=== PATIENT | male | born 1975 | race Caucasian/White ===

== ENCOUNTER 2016-10-20 09:56 | Emergency (ER) | payer OTHER ==
[2016-10-20 10:17] VITALS: RESP 15; TEMP 98.5
[2016-10-20 10:37] LABS: BLOOD UREA NITROGEN 14 mg/dL (7-22); BUN/CREATININE RATIO 11.66 (6-20); CALCIUM 9.5 mg/dL (8.7-10.7); CHLORIDE 104 meq/L (98-112); CREATININE 1.2 mg/dL (0.70-1.50); EST GLOMERULAR FILTRATION > 60 (>60 ml/min/1.73m(2)); GLUCOSE 119 mg/dL (78-110); SODIUM 140 meq/L (135-145)
--- NOTE | 2016-10-20 10:52 | DI ---
History: Left ankle pain. Two-view. Findings: Mild medial soft tissue thickening. No evidence of fracture or dislocation. Talar dome norm al. Subtalar joint normal. Tarsal arch normal. Impression: Mild medial soft tissue swelling, possible sprain. No bony abnormalities identified
--- NOTE | 2016-10-21 01:47 | PDOC ---
Lower Extremity Problem HPI - General Chief Complaint: Lower Extremity Problem/Injury Stated Complaint: left swollen ankle Date Seen by Provider: 10/20/16 Time Seen by Provider: 10:15 Source: POSITIVE: Patient Exam Limitations: POSITIVE: No limitations Nurse's Notes Reviewed & Considered: Yes - History of Present Illness Initial Comments: The patient is a 40-year-old male. He states that for the last 2 days he has had some swelling,redness and prominent tenderness over the area of the lateral malleolus and lateral aspect of the left ankle. No history of trauma. No fevers or chills. Area is quite tender on palpation. Is on no medications and has no known medical problems. Body Location Affected: REPORTS: Lower Extremity (L) Timing: REPORTS: Gradual, Getting Worse Duration: >24 hours (2 days) Severity: Moderate Recent Injury: REPORTS: No Context of Injury: DENIES: Fall, Twist, Direct Blow, Incision, Burn, Crush, Stab , Prolonged Pressure on Ext, Other Location at Time of Onset: REPORTS: Home Quality: REPORTS: "Pain", Tenderness Modifying Factors: REPORTS: Walking, Other (Direct palpation) Associated Symptoms: REPORTS: Chest Pain Similar Symptoms Previously: No Recent Care Received: REPORTS: Denies Any Prior Injuries Related to Current Complaint?: No - Patient Home Medications Home Medications: Home Medications Indomethacin 25 mg PO Q8H #45 capsule 10/20/16 - Patient Allergies Allergies/Adverse Reactions: Allergies Allergy/AdvReac Type Severity Reaction Status Date / Time No Known Allergies Allergy Verified 10/20/16 10:02 Past Medical History - heen HEENT History: Denies History Cardiovascular History: Denies History Respiratory History: Denies History Gastrointestinal History: Denies History Genitourinary History: Denies History Endocrine History: Denies History Musculoskeletal History: Denies History Prosthesis or Implant: No Neurological History: Denies History Blood Disorders: Denies History Psychiatric History: Denies History History of Sexually Transmitted Diseases: No Male Reproductive History: Denies History Cancer History: Denies History In Past Year Been Physically Harmed or Verbally Threatened: No (PER PATIENT) History of MDRO: No History of Other Communicable Diseases: No Tobacco Use: Current Every Day Smoker Alcohol Use: Other How much alcohol do you normally drink a day?: 4 BEERS DAILY Substance Use Type: None Previous Surgical History: No Significant Family History: No pertinent family hx Past Medical History Reviewed: Reviewed - No Changes ROS - Limitations ROS Limitations: No Limitations Constitution: REPORTS: Denies Symptoms Cardiovascular: REPORTS: Denies Cardiac Symptoms Respiratory: REPORTS: Denies Resp Symptoms Neurological: REPORTS: Denies Neuro Symptoms Gastrointestinal: REPORTS: Denies GI Symptoms Endocrine: REPORTS: Denies Symptoms Musculoskeletal: REPORTS: Other (Pain swelling and redness lateral aspect of left ankle) Genitourinary: REPORTS: Denies Symptoms Eyes: REPORTS: Denies Symptoms ENT: REPORTS: Denies Symptoms Skin: REPORTS: Other (Swelling, redness, warmth and tenderness over lateral aspect left ankle) Lympathic: REPORTS: Denies Lympathic Symptoms Immunologic: POSITIVE: Denies Symptoms Psychiatric: POSITIVE: Denies Psych Symptoms Lower Ext Problem Exam - General Appearance General Appearance: POSITIVE: Alert, Cooperative, No Acute Distress, No Evidence of Trauma - Extremities Lower Extremity: POSITIVE: Ankle, Tenderness, Swelling, Other (See diagram) Joint Exam: POSITIVE: Normal ROM, Ligamentous Instability, Antalgic Gait, Painful (On palpation around the lateral malleolus). 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 Nml, Pharynx Inspect. Nml, PERRL, EOMI - Respiratory / CVS Respiratory / CVS: POSITIVE: No Respiratory Distress, Breath Sounds Normal, Regular Rate/Rhythm, Heart Sounds Normal Peripheral Pulses: Radial (R): 2+, Radial (L): 2+, Dorsalis-pedis (R): 2+, Dorsalis-pedis (L): 2+ - Abdomen Abdomen: Soft: (All Quadrants), Normal Bowel Sounds: (All Quadrants), Denies Tenderness: (All Quadrants), No Splenomegaly: (All Quadrants), No Hepatomegaly: (All Quadrants), No Guarding: (All Quadrants), No Rebound: (All Quadrants), No Palpable Pulse: (All Quadrants), No Palpabale Mass: (All Quadrants), No Distention: (All Quadrants), No Rigidity: (All Quadrants) Images - Lower Extremities Lower Extremities: 1 - Rubor, calor, dolor. Pain on palpation Lower Ext Problem Progress - Results Reviewed by me Xrays/CTs/US Reviewed by me: Yes Discussed with Radiologist: No Radiology Findings: X-ray left ankle normal by my interpretation; radiologist interpretation pending. Lab Results Reviewed: Yes Lab Results:: Laboratory Results 10/20/16 10/20/16 Range/Units 10:12 10:18 Sodium 140 (135-145) meq/L Potassium 4.0 (3.8-5.2) meq/L Chloride 104 (98-112) meq/L Carbon Dioxide 25 (23-33) meq/L Anion Gap 11 (5-20) BUN 14 (7-22) mg/dL Creatinine 1.2 (0.70-1.50) mg/dL Estimated GFR > 60 (>60 ml/min/1.73m(2)) BUN/Creatinine Ratio 11.66 (6-20) Glucose 119 H (78-110) mg/dL Calculated Osmolality 291.0 (267-292) mOsm/kg Uric Acid 8.7 H (3.8-8.5) mg/dl Calcium 9.5 (8.7-10.7) mg/dL - Patient's Progress Pain Medication Addressed: POSITIVE: Yes (Indomethacin and hydrocodone/APAP) School/Work Release Addressed: POSITIVE: Yes Re-Examine Time: 11:10 Status: POSITIVE: Unchanged, Re-Examined - Consult Counseled: POSITIVE: Patient, RE: Lab Results, RE: Radiology Results, RE: DX, RE : Need for F/U Patient Care Time - Estimated PCT Patient Care Time (In Minutes): 22 Vital Signs - VS Reviewed Vital Signs Reviewed: Yes Discharge Clinical Impression: Gout Discharge Disposition: Discharged to Home Condition: Stable Prescriptions / Orders: Indomethacin 25 mg PO Q8H #45 capsule Patient Instructions Given at Discharge: Gout (ED) Additional Instructions: Work excuse for 3 days. Take indomethacin, 2 tablets every 8 hours for 5 days and then 1 tablet every 8 hours for 5 days. Elevate leg. Follow-up with your primary care provider. Return here anytime if condition worsens in any way. Follow Up With: NONE,NONE [Primary Care Provider] - (Instructions and medications as above. Follow-up with your primary care provider. Return here anytime if condition worsens.)
== END 2016-10-20 11:23 | disposition home or self-care (01) ==
LOC: ER 09:56
DX: M10.9 Gout, unspecified (principal); M25.572 Pain in left ankle and joints of left foot
CPT/HCPCS: 36415; 73600; 80048; 84550; 99283